=== PATIENT | male | born 2000 | race African-American/Black ===

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

== ENCOUNTER 2020-05-16 18:27 | Emergency (ER) | payer SELFPAY ==
[2020-05-16 18:28] VITALS: BP 134/77; PULSE 96; RESP 16; TEMP 36.2; O2SAT 98; BMI 27.3
--- NOTE | 2020-05-16 18:37 | ED.VIS.GEN ---
History of Present Illness Chief Complaint: Wound Informant: Patient Onset: Days Context: Gradual Onset Timing: Continuous Current Severity: Moderate Maximum Severity: Moderate Narrative: The patient is a 20-year-old male that presents to the emergency department with a wound on his penis. He states he noticed it 4 days ago. He states that he tried some topical peroxide which burned. He is currently sexually active. He denies any penile discharge. He denies any dysuria. He said no fever or chills. He is otherwise been in his normal state of health. Recent Illness/Hospitalization: No Past Medical History - Allergies and Home Meds Allergies/Adverse Reactions: Allergies chocolate flavor Allergy (Verified 05/11/19 17:52) Itching Primary Care Physician: Care Physician,No Primary [Primary Care Provider] - Prior records reviewed: Yes Past Medical History: None Surgical History: no surgical history Smoking Status: Former smoker Review of Systems General: Denies: Chills, Fever, Sweats Eyes: Denies: Visual changes - bilaterally, Diplopia ENT: Denies: Rhinorrhea, Sore throat Cardiovascular: Denies: Chest pain, Palpitations Respiratory: Denies: Dyspnea, Cough, Dyspnea on exertion Gastrointestinal: Denies: Abdominal pain, Nausea, Vomiting, Diarrhea, Melena, Hematochezia Genitourinary: Denies: Dysuria, Hematuria, Frequency Musculoskeletal: Denies: Back pain, Extremity Pain Skin: Denies: Rash, Wounds Neurological: Denies: Headache, Weakness, Numbness Physical Exam Vital Signs/Narrative: Vital Signs Temp Pulse Resp BP Pulse Ox 05/16/20 18:28 97.1 F L 96 16 134/77 H 98 Inital Vital Signs reviewed: Yes General: Well nourished, Well developed, No Acute Distress Head: Normocephalic, Atraumatic Eyes: Perrl, EOMI ENT: Moist mucous membranes, No rhinorrhea Neck: Supple, Nontender Cardiovascular: Regular rate, Regular rhythm, No murmurs Respiratory: No distress, CTA bilaterally, Chest nontender Abdomen: Soft, Nontender, Nondistended, Normal bowel sounds : - - The patient has a 1 cm ovoid area of tissue loss. This is not a chancre, vesicle, or anything else that is consistent with an STD. It looks like a small follicular inflammation. Back: Nontender, Normal Inspection Extremities: Nontender, No edema Skin: Normal color, No rash Neurological: Alert, Oriented x3, Cranial nerves II-XII grossly intact, Normal Strength, Normal Sensation Psychological: Normal affect, Normal Mood Diagnostic/Tx/Re-eval - Medical Decision Making Patient has a small area of folliculitis with some tissue loss. This does not appear to be a chancre. There is no adenopathy. There is no vesicles. He is otherwise been in his normal state of health. Inguina treated with topical bacitracin. He will be discharged home. Impression 1. Penile lesion ED Disposition - Plan for ED Patient: Instructions: ED Skin Avulsion Prescriptions: Bacitracin 1 applic TP TID #30 oint...g. Prescription Printed Referrals: Care Physician,No Primary [Primary Care Provider] -
[2020-05-16] MEDS: BACITRACIN 15 GM Tube 1 APPLIC TOPICAL (18:55)
== END 2020-05-16 18:56 | disposition home or self-care (01) ==
LOC: ED 18:53
PROVIDERS: Emergency Provider Emergency Medicine
DX: L73.9 Follicular disorder, unspecified (principal); Z87.891 Personal history of nicotine dependence
CPT/HCPCS: 99282